=== PATIENT | female | born 1985 | race African-American/Black ===

== ENCOUNTER 2021-09-11 15:00 | Emergency (ER) | payer SELFPAY ==
[~2021-09-11] VITALS: Ht 157.5 cm; Wt 48.0 kg
[2021-09-11 15:03] VITALS: BP 95/56
== END 2021-09-11 18:21 | disposition left against medical advice (07) ==
LOC: ER 15:00
DX: Z53.21 Procedure and treatment not carried out due to patient leaving prior to being seen by health care provider (principal)